=== PATIENT | male | born 1980 | race Caucasian/White ===

== ENCOUNTER 2016-06-06 18:21 | Emergency (ER) | payer SELFPAY ==
[~2016-06-06] VITALS: Ht 172.7 cm; Wt 55.0 kg
[~2016-06-06 18:21] MED LIST: CIPR500T4 PO; ELVI1TAB PO; METR500T PO
[2016-06-06 18:50] VITALS: Ht 172.7 cm; Wt 55.0 kg
== END 2016-06-06 22:51 | disposition left against medical advice (07) ==
LOC: E/R 18:21
DX: Z53.21 Procedure and treatment not carried out due to patient leaving prior to being seen by health care provider (principal)

== ENCOUNTER 2016-09-23 12:19 | Inpatient (IN) | payer BC ==
[~2016-09-23] VITALS: Ht 172.7 cm; Wt 60.6 kg
[2016-09-23] MEDS ORDERED: ONDANSETRON 4 MG INJ IV STA (12:36)
[2016-09-23] MEDS ORDERED: SOD CHLORIDE 0.9% 1,000 ML IV STA (12:36)
[2016-09-23 13:16] LABS: ADD UMIC YES; URINE BILIRUBIN (Dip) NEGATIVE (NEGATIVE); URINE BLOOD (Dip) 2+ (NEGATIVE); URINE COLOR LT. YELLOW (YELLOW); URINE GLUCOSE (Dip) NEGATIVE (NEGATIVE); URINE KETONES (Dip) NEGATIVE (NEGATIVE); URINE LEUKOCYTE ESTERASE (Dip) NEGATIVE (NEGATIVE); URINE NITRITE (Dip) NEGATIVE (NEGATIVE); URINE TOTAL PROTEIN (Dip) 1+ (NEGATIVE); URINE UROBILINOGEN (Dip) 0.2 E.U./dL (0.1-1.0)
[2016-09-23 13:49] LABS: ADD SCAN DIFF NO
[2016-09-23 13:52] LABS: ABNORMAL IP MESSAGE 1; HEMATOCRIT 35.2 % (42.0-52.0); HEMOGLOBIN 12.5 g/dl (14.0-18.0); MEAN CORPUSCULAR HEMOGLOBIN 28.6 pg (29.0-33.0); MEAN CORPUSCULAR HGB CONC 35.5 g/dl (32.0-37.0); MEAN CORPUSCULAR VOLUME 80.5 fl (82.0-101.0); MEAN PLATELET VOLUME 9.4 fl (7.4-10.4); RED BLOOD COUNT 4.37 10^6/ul (4.70-6.10); RED CELL DISTRIBUTION WIDTH 15.4 % (11.5-14.5); WHITE BLOOD COUNT 11.8 10^3/ul (4.8-10.8)
[2016-09-23] MEDS ORDERED: DICLOFENAC SODIUM 37.5 MG/ML VIAL IV STA (14:04)
[2016-09-23 14:10] LABS: ALBUMIN 3.9 g/dl (3.3-4.9); ALBUMIN/GLOBULIN RATIO 0.78; BILIRUBIN,INDIRECT 0.2 mg/dl (0-1.1); BILIRUBIN,TOTAL 0.2 mg/dl (0.2-1.3); CALCIUM 8.5 mg/dl (8.4-10.2); CREATININE 1.82 mg/dl (0.61-1.24); TOTAL PROTEIN 8.9 g/dl (6.1-8.1)
[2016-09-23 14:14] LABS: POTASSIUM 2.3 mmol/L (3.5-5.1)
[2016-09-23] MEDS ORDERED: POTASSIUM CHLORIDE (SR) 20 MEQ TAB PO STA (14:19)
[2016-09-23 14:50] LABS: LYMPHOCYTES # 2.8 10^3/ul (0.8-2.9); MONOCYTE # 1.7 10^3/ul (0.3-0.9); NEUTROPHIL # 6.5 10^3/ul (1.6-7.5); PLATELET ESTIMATE PLT APPEAR INCREASED
[2016-09-23] MEDS ORDERED: POTASSIUM CHLORIDE 250 ML IVPB ONE (15:00)
[2016-09-23 16:00] VITALS: TEMP 98
[2016-09-23] MEDS ORDERED: SOD CHLORIDE 0.9% 500 ML IV STA (16:22)
[2016-09-23] MEDS ORDERED: ONDANSETRON 4 MG INJ IV PRN ×2 (16:30→18:30)
[2016-09-23] MEDS ORDERED: LORAZEPAM 2 MG INJ IV ONE (16:30)
[2016-09-23] MEDS ORDERED: ACETAMINOPHEN 325 MG TAB PO PRN ×2 (16:30→18:30)
--- NOTE | 2016-09-23 17:30 | ERD ---
ER Documentation Chief Complaint Date/Time DATE: 09/23/16 TIME: 17:28 Chief Complaint complains of diarrhea and vomiting x 3 days HPI Patient is a 35-year-old male with HIV who presents with diarrhea. The patient has had diarrhea for the past 2 weeks. He has had vomiting off and on as well as fevers off and on. He said that he stopped taking his HIV medications 4 days ago because of the vomiting and he could not keep them down. He has diffuse abdominal pain. He does not know the name of his primary doctor. ROS All systems reviewed and are negative except as per history of present illness. Medications Home Meds Active Scripts Metronidazole* (Flagyl*) 500 Mg Tablet, 500 MG PO TID for 10 Days, TAB Prov:SAMM MEZA MD 02/11/15 Ciprofloxacin Hcl* (Ciprofloxacin Hcl*) 500 Mg Tablet, 500 MG PO BID for 10 Days , TAB Prov:SAMM MEZA MD 02/11/15 Reported Medications Elvitegr/Cobicist/Emtric/Tenof (STRIBILD TABLET) 1 Each Tablet, 1 EACH PO DAILY 02/11/15 Allergies Allergies: Coded Allergies: No Known Drug Allergy (Verified Allergy, Unknown, 05/09/08) Morphine (Verified Adverse Reaction, Severe, ANXIETY,SOB, 05/07/08) PMhx/Soc Hx Neurological Disorder: Yes (meningitis 4 years ago, stroke 3.5 years ago) Hx Miscellaneous Medical Probl: Yes (HIV, previous dehydration) Hx Alcohol Use: Yes (quit 5 years ago) Hx Substance Use: Yes (quit 3 months ago) Hx Tobacco Use: Yes Smoking Status: Current some day smoker FmHx Family History: diabetes Physical Exam Vitals Vital Signs Date Time Temp Pulse Resp B/P Pulse Ox O2 Delivery O2 Flow Rate FiO2 09/23/16 16:00 98.0 86 18 114/68 100 Room Air 09/23/16 12:22 97.8 114 20 103/62 100 Physical Exam Const: Cachexia Head: Atraumatic Eyes: Normal Conjunctiva ENT: Normal External Ears, Nose and Mouth. Neck: Full range of motion..~ No meningismus. Resp: Clear to auscultation bilaterally Cardio: Regular rate and rhythm, no murmurs Abd: Soft, non tender, non distended. Normal bowel sounds Skin: No petechiae or rashes Back: No midline or flank tenderness Ext: No cyanosis, or edema Neur: Awake and alert Psych: Normal Mood and Affect Result Diagram: 09/23/16 1330 09/23/16 1330 Results 24 hrs Laboratory Tests Test 09/23/16 12:54 09/23/16 13:30 Urine Color LT. YELLOW Urine Clarity CLEAR Urine pH 6.0 Urine Specific [place] <=1.005 Urine Ketones NEGATIVE Urine Nitrite NEGATIVE Urine Bilirubin NEGATIVE Urine Urobilinogen 0.2 E.U./dL Urine Leukocyte Esterase NEGATIVE Urine Microscopic RBC 5-10/HPF Urine Microscopic WBC 2-5/HPF Urine Hemoglobin 2+ Urine Glucose NEGATIVE% Urine Total Protein 1+ White Blood Count 11.810^3/ul Red Blood Count 4.3710^6/ul Hemoglobin 12.5g/dl Hematocrit 35.2% Mean Corpuscular Volume 80.5fl Mean Corpuscular Hemoglobin 28.6pg Mean Corpuscular Hemoglobin Concent 35.5g/dl Red Cell Distribution Width 15.4% Platelet Count 07837^3/UL Mean Platelet Volume 9.4fl Neutrophils % 55.0% Band Neutrophils % 7.0% Lymphocytes % 24.0% Monocytes % 14.0% Eosinophils % % Neutrophils # 6.510^3/ul Lymphocytes # 2.810^3/ul Monocytes # 1.710^3/ul Eosinophils # 10^3/ul Platelet Estimate PLT APPEAR INCREASED Clumped Platelets Sodium Level 128mmol/L Potassium Level 2.3mmol/L Chloride Level 98mmol/L Carbon Dioxide Level 16mmol/L Anion Gap 16 Blood Urea Nitrogen 18mg/dl Creatinine 1.82mg/dl Glucose Level 101mg/dl Calcium Level 8.5mg/dl Total Bilirubin 0.2mg/dl Direct Bilirubin 0.00mg/dl Indirect Bilirubin 0.2mg/dl Aspartate Amino Transf (AST/SGOT) 54IU/L Alanine Aminotransferase (ALT/SGPT) 84IU/L Alkaline Phosphatase 156IU/L Total Protein 8.9g/dl Albumin 3.9g/dl Globulin 5.00g/dl Albumin/Globulin Ratio 0.78 Lipase 165U/L Current Medications Medications (Trade) Dose Ordered Sig/Nicko Route PRN Reason Start Time Stop Time Status Last Admin Dose Admin Sodium Chloride (NS) 1,000 ml @ 1,000 mls/hr Q1H STAT IV 09/23/16 12:36 09/23/16 13:35 DC 09/23/16 13:32 Ondansetron HCl (Zofran Inj) 4 mg ONCE STAT IV 09/23/16 12:36 09/23/16 12:39 DC 09/23/16 13:32 Diclofenac Sodium (Dyloject) 37.5 mg ONCE STAT IV 09/23/16 14:04 09/23/16 14:07 DC 09/23/16 14:12 Potassium Chloride 40 meq 40 meq ONCE STAT PO 09/23/16 14:19 09/23/16 14:21 DC 09/23/16 14:32 Potassium Chloride (KCl 40 MEQ/250 ML NS) 250 ml @ 62.5 mls/hr ONCE ONCE IVPB 09/23/16 15:00 09/23/16 18:59 09/23/16 16:02 Ondansetron HCl (Zofran Inj) 4 mg ER BRIDGE PRN IV NAUSEA AND/OR VOMITING 09/23/16 16:30 09/24/16 16:29 Acetaminophen (Tylenol Tab) 650 mg ER BRIDGE PRN PO MILD PAIN/FEVER 09/23/16 16:30 09/24/16 16:29 Lorazepam 0.5 mg 0.5 mg ONCE ONCE IV 09/23/16 16:30 09/23/16 16:31 DC 09/23/16 16:25 Sodium Chloride (NS) 500 ml @ 500 mls/hr Q1H STAT IV 09/23/16 16:22 09/23/16 17:21 DC 09/23/16 16:25 Procedures/MDM EKG read by me: Rate/Rhythm: Regular rate and rhythm at a normal rate Intervals: Normal Impression: No evidence of ischemia or arrhythmia Patient is a 35-year-old male with HIV who presents with vomiting and diarrhea. He had significant diarrhea to cause his potassium to become 2.3 and he has significant hypokalemia. The patient has anemia with a hemoglobin of 12.5 but does not require transfusion. He has mild acute renal failure with a creatinine of 1.82 which is likely from fluid loss. The patient will be given IV normal saline. The patient was given potassium by mouth and IV. He will be admitted to the care of the panel team as the IPA has authorized admission. He will be admitted to a telemetry bed. Observation Note: Time: 4 hours Family Hx: Positive for diabetes Evaluation: Multiple exams showed improving symptoms and no evidence of clinical decompensation. Departure Diagnosis: Primary Impression: HIV (human immunodeficiency virus infection) Additional Impressions: Diarrhea Diarrhea type: unspecified type Qualified Code: R19.7 - Diarrhea, unspecified type Hypokalemia Condition: ANA Hodges MD Sep 23, 2016 17:30
[2016-09-23 17:57] VITALS: Ht 172.7 cm; Wt 60.6 kg
[2016-09-23 17:59] VITALS: BP 103/59; PULSE 84; RESP 18
[2016-09-23] MEDS ORDERED: HYDROCODONE/APAP (5/325) TAB PO PRN (18:30)
[2016-09-23] MEDS ORDERED: NACL 0.9% 3 ML SYG IV SCH (18:30)
[2016-09-23] MEDS: HYDROmorphONE 1 MG/ML SYG IV PRN (18:51)
--- NOTE | 2016-09-23 18:59 | HP ---
DATE OF ADMISSION: 09/23/2016 CHIEF COMPLAINT: Diarrhea. HISTORY OF PRESENT ILLNESS: The patient is a 35-year-old male with a history of HIV who has john hernandes compliance with his HIV medications. He states that he has not been taking his medications fo r the past week. He has a history of meningitis in the past x2. He states that his last CD4 was ch ecked several months ago and was in the 200s. The patient presents with 1 week of diarrhea. He als o endorses abdominal pain. He has no other complaints. PAST MEDICAL HISTORY: HIV with several episodes of meningitis. PAST SURGICAL HISTORY: Denies. HOME MEDICATIONS: 1. Stribild. 2. Cipro 3. Flagyl. ALLERGIES: REPORTEDLY MORPHINE, BUT HE HAS AN ADVERSE REACTION OF ANXIETY AND NOT A TRUE ALLERGY. FAMILY HISTORY: Denies. SOCIAL HISTORY: Denies any current alcohol, tobacco, or drug abuse, but he has a history of smoking , drug abuse as well as alcohol abuse. REVIEW OF SYSTEMS: A 12-point review of systems is negative except as discussed in the HPI. PHYSICAL EXAMINATION: VITAL SIGNS: Temperature is 98.1, pulse 84, respiratory rate 18, blood pressure is 103/59, saturati on is 100% on room air. GENERAL: No acute distress, alert and oriented. HEENT: Normocephalic, atraumatic. CHEST: Clear to auscultation. CARDIOVASCULAR: Regular rate and rhythm. ABDOMEN: Nondistended, nontender, soft. EXTREMITIES: No clubbing, cyanosis, or edema. LABORATORY DATA: White count 11.8, hemoglobin 12.5, platelets of 621. Chemistry: Sodium is 128, p otassium is 2.3, chloride is 98, carbon dioxide is 16, creatinine is 1.82. AST is 54, ALT is 84, al kaline phosphatase 156. UA within normal limits. ASSESSMENT AND PLAN: 1. Human immunodeficiency virus with diarrhea for 1 week. Stool cultures already have been obtaine d in the ED. We will get an ID consultation. We will restart the patient's home HIV medications. 2. Leukocytosis, likely secondary to diarrhea. 3. Microcytic anemia. We will check an iron panel. 4. Hypokalemia. We will replete with potassium IV. 5. Hyponatremia. We will treat with normal saline. 6. Transaminitis, possibly secondary to HIV medications. We will check a hepatitis panel. 7. Prophylaxis. Ambulation. Dictated By: MILLER MCKEON/LIZA Conf#: [id number] DID#: [id number]
[2016-09-23 20:09] VITALS: PULSE 92
[2016-09-23] MEDS: NS + KCL 20 MEQ 1,000 ML IV SCH (20:30)
[2016-09-23 20:58] VITALS: BP 94/53; RESP 16
[2016-09-23] MEDS: metroNIDAZOLE 500 MG/NS (PMX) 100 ML IVPB SCH (22:44)
[2016-09-24] VITALS (11 sets, daily range): BP systolic 88–122; BP diastolic 52–65; PULSE 101–121; RESP 16–20
[2016-09-24] MEDS: metroNIDAZOLE 500 MG/NS (PMX) 100 ML IVPB SCH ×3 (06:12→22:40)
[2016-09-24] MEDS: NS + KCL 20 MEQ 1,000 ML IV SCH ×3 (06:12→22:45)
[2016-09-24] MEDS: ELVITEGR/COBICIST/EMTRIC/TENOF 1 EACH TABLET PO SCH (09:35)
[2016-09-24] MEDS: HYDROmorphONE 1 MG/ML SYG IV PRN ×5 (10:13→23:14)
[2016-09-24 10:40] LABS: ADD SCAN DIFF NO; HAAIG REFLEX REFLEX FILED
[2016-09-24 10:43] LABS: ABNORMAL IP MESSAGE 1; HEMATOCRIT 27.1 % (42.0-52.0); HEMOGLOBIN 9.3 g/dl (14.0-18.0); MEAN CORPUSCULAR HEMOGLOBIN 28.4 pg (29.0-33.0); MEAN CORPUSCULAR HGB CONC 34.3 g/dl (32.0-37.0); MEAN CORPUSCULAR VOLUME 82.6 fl (82.0-101.0); MEAN PLATELET VOLUME 10.5 fl (7.4-10.4); PLATELET COUNT 379 10^3/UL (140-415); RED BLOOD COUNT 3.28 10^6/ul (4.70-6.10); RED CELL DISTRIBUTION WIDTH 15.9 % (11.5-14.5); WHITE BLOOD COUNT 12.3 10^3/ul (4.8-10.8)
[2016-09-24 11:07] LABS: IRON 35 ug/dl (35-150)
[2016-09-24 11:10] LABS: ALBUMIN/GLOBULIN RATIO 0.75; ANION GAP 8 (8-16)
[2016-09-24 11:16] LABS: TOTAL IRON BINDING CAPACITY 162 ug/dl (241-421)
[2016-09-24 11:21] LABS: SODIUM 131 mmol/L (135-144)
[2016-09-24 11:23] LABS: ALANINE AMINOTRANSFERASE 55 IU/L (13-69); ALBUMIN 2.8 g/dl (3.3-4.9); ALKALINE PHOSPHATASE 115 IU/L (42-121); ASPARTATE AMINO TRANSFERASE 29 IU/L (15-46); BILIRUBIN,INDIRECT 0.1 mg/dl (0-1.1); BILIRUBIN,TOTAL 0.1 mg/dl (0.2-1.3); BLOOD UREA NITROGEN 17 mg/dl (7-20); CALCIUM 7.7 mg/dl (8.4-10.2); CARBON DIOXIDE 12 mmol/L (21-31); CHLORIDE 113 mmol/L (97-110); CREATININE 1.49 mg/dl (0.61-1.24); GLUCOSE 91 mg/dl (70-220); MAGNESIUM 2.1 mg/dl (1.7-2.5); PHOSPHORUS 1.3 mg/dl (2.5-4.9); POTASSIUM 2.4 mmol/L (3.5-5.1); TOTAL PROTEIN 6.5 g/dl (6.1-8.1)
[2016-09-24 11:49] LABS: LYMPHOCYTES # 1.4 10^3/ul (0.8-2.9); MONOCYTE # 0.6 10^3/ul (0.3-0.9); NEUTROPHIL # 9.5 10^3/ul (1.6-7.5)
[2016-09-24 12:53] LABS: HEPATITIS B CORE ANTIBODY NEGATIVE (NEGATIVE)
--- NOTE | 2016-09-24 14:40 | PN ---
DATE: 09/24/2016 SUBJECTIVE: No acute changes. The patient is awake, very weak, complaining of diarrhea and is comp laining of feeling weak and also depressed. He is afebrile. He states he had a bowel movements 10 times this morning. WBC today 12.3 with H and H 9.3 and 27.1, platelets 379, neutrophils 77, bands 7, lymphs 11, monos 5. BUN 17, creatinine 1.49. Sodium 131, potassium 2.4. LFTs within normal littlejohn its. Urinalysis was negative for leukocyte esterase and nitrite. Hepatitis serology pending. MICROBIOLOGY: Urine culture preliminary negative. Stool for C. diff negative. ANTIMICROBIALS: The patient is on: 1. Flagyl. 2. He is also getting Stribild for his HIV. PHYSICAL EXAMINATION: GENERAL: This is well-developed, cachectic, middle-aged man who is alert, in no distress. HEENT: Head atraumatic, normocephalic. Sclerae anicteric. Buccal mucosa pink. NECK: Supple. CHEST: Rise symmetrical. Breath sounds clear. HEART: S1, S2. ABDOMEN: Soft, bowel tones present. EXTREMITIES: Without cyanosis or edema. ASSESSMENT: 1. Acquired immunodeficiency syndrome. As per report, patient is supposed to be on prophylactic B actrim, which he stopped taking because he was not feeling well and had been nauseated, remains on S tribild. 2. Diarrhea, so far Clostridium difficile was negative, on Flagyl. Rule out opportunistic such as cryptosporidium Isospora. Rule out food poisoning versus parasitic infection. 3. Cachexia. 4. History of meningitis and recent pneumonia. 5. History of tobacco abuse. 6. Acute renal failure. PLAN: We are going to start him on Cipro. Continue Flagyl. Replete potassium. Continue IV fluids, send stool for ova and parasites, cryptosporidium Isospora. We will also start him on empiric Valc yte for possible CMV colitis as the patient states he has AIDS and at risk for it. If diarrhea pers ists, recommend gastroenterology evaluation for possible colonoscopy. We will also order CD4 count if it has not been done. Dictated By: ELADIO HERNANDEZ NAIL ASSEMBLY MACHINE OPERATOR for [employer]/LIZA Conf#: [id number] DID#: [id number]
[2016-09-24] MEDS ORDERED: LORAZEPAM 1 MG TAB PO PRN (15:30)
[2016-09-24] MEDS: LEVOFLOXACIN 500MG/D5W (PMX) 100 ML IVPB SCH (16:04)
--- NOTE | 2016-09-24 18:04 | PN ---
Date/Time of Note Date/Time of Note DATE: 09/24/16 TIME: 17:59 Assessment/Plan VTE Prophylaxis VTE Prophylaxis Intervention: ambulation Lines/Catheters IV [facility] (from [facility]): Peripheral IV Urinary Cath still in place: No Assessment/Plan Chief Complaint/Hosp Course 1. Diarrhea in a patient with HIV Prelim stool cultures are negative, C. difficile is negative ID consult appreciated, follow-up on further workup Continue patient's home HIV medications follow-up on the CD4 level Continue Flagyl Levaquin and Valcyte .2. Leukocytosis secondary to above 3. Microcytic anemia secondary to anemia of chronic disease 4. Hypokalemia-complete 5. Hyponatremia Continue normal saline 6. Transaminitis-resolved Hep panel negative Prophylaxis- Ambulation Problems: Subjective 24 Hr Interval Summary Gastrointestinal: pain Psychological: anxiety Exam/Review of Systems Vital Signs Vitals Vital Signs Date Time Temp Pulse Resp B/P Pulse Ox O2 Delivery O2 Flow Rate FiO2 09/24/16 16:05 121 09/24/16 16:05 98.2 18 122/62 99 09/23/16 17:59 Room Air Intake and Output 09/23/16 09/23/16 09/24/16 15:00 23:00 07:00 Intake Total 1100 ml Balance 1100 ml Exam Constitutional: alert, oriented Respiratory: clear to auscultation Cardiovascular: regular rate and rhythm Gastrointestinal: soft, No distended Musculoskeletal: nl extremities to inspection Results Result Diagram: 09/24/16 0955 09/24/16 0955 Results 24 hrs Laboratory Tests Test 09/24/16 09:55 White Blood Count 12.3 H Red Blood Count 3.28 #L Hemoglobin 9.3 #L Hematocrit 27.1 #L Mean Corpuscular Volume 82.6 Mean Corpuscular Hemoglobin 28.4 L Mean Corpuscular Hemoglobin Concent 34.3 Red Cell Distribution Width 15.9 H Platelet Count 379 # Mean Platelet Volume 10.5 H Neutrophils % 77.0 Band Neutrophils % 7.0 H Lymphocytes % 11.0 L Monocytes % 5.0 Eosinophils % Neutrophils # 9.5 H Lymphocytes # 1.4 Monocytes # 0.6 Eosinophils # Sodium Level 131 L Potassium Level 2.4 *L Chloride Level 113 H Carbon Dioxide Level 12 L Anion Gap 8 # Blood Urea Nitrogen 17 Creatinine 1.49 H Glucose Level 91 Hemoglobin A1c 5.9 Calcium Level 7.7 L Phosphorus Level 1.3 L Magnesium Level 2.1 Iron Level 35 Total Iron Binding Capacity 162 L Percent Iron Saturation 22 Total Bilirubin 0.1 L Direct Bilirubin 0.00 Indirect Bilirubin 0.1 Aspartate Amino Transf (AST/SGOT) 29 Alanine Aminotransferase (ALT/SGPT) 55 Alkaline Phosphatase 115 Total Protein 6.5 # Albumin 2.8 #L Globulin 3.70 H Albumin/Globulin Ratio 0.75 Hepatitis B Surface Antigen NEGATIVE Hepatitis B Core Total Antibody NEGATIVE Hepatitis C Antibody NEGATIVE Medications Medications Current Medications Ondansetron HCl (Zofran Inj) 4 mg Q6H PRN IV NAUSEA AND/OR VOMITING; Start 09/23 at 18:30 Acetaminophen (Tylenol Tab) 650 mg Q6H PRN PO PAIN LEVEL 1-3 OR FEVER; Start at 18:30 Acetaminophen/ Hydrocodone Bitart ([place] (5/325)) 1 tab Q6H PRN PO MODERATE PAIN LEVEL 4-6 Last administered on 09/24/16 09:36; Admin Dose 1 TAB; Start 09/23/16 at 18:30 Hydromorphone HCl (Dilaudid) 0.5 mg Q4H PRN IV SEVERE PAIN LEVEL 7-10 Last administered on 09/24/16 14:56; Admin Dose 0.5 MG; Start 09/23/16 at 18:30 Elvitegravir/ Cobicis/Emtricit/ Tenof 1 each 1 each DAILY PO Last administered on 09/24/16 09:35; Admin Dose 1 EACH; Start 09/24/16 at 09:00 Potassium Chloride/Sodium Chloride 1,000 ml @ 100 mls/hr Q10H IV Last administered on 09/24/16 14:55; Admin Dose 100 MLS/HR; Start 09/23/16 at 18:30 Metronidazole (Flagyl 500 Mg (Pmx)) 100 ml @ 100 mls/hr Q8 IVPB Last administered on 09/24/16 14:55; Admin Dose 100 MLS/HR; Start 09/23/16 at 22:00 Valganciclovir 450 mg 450 mg BID PO ; Start 09/24/16 at 21:00 Levofloxacin/ Dextrose (Levaquin 500mg/ D5W 100 ml (Pmx)) 100 ml @ 100 mls/hr Q24H IVPB Last administered on 09/24/16 16:04; Admin Dose 100 MLS/HR; Start at 14:30 Lorazepam (Ativan) 1 mg Q6H PRN PO ANXIETY Last administered on 09/24/16 16:04 ; Admin Dose 1 MG; Start 09/24/16 at 15:30 MILLER CUTLER Sep 24, 2016 18:04
[2016-09-24] MEDS ORDERED: POTASSIUM CHLORIDE 250 ML IVPB SCH (18:30)
[2016-09-24] MEDS ORDERED: POTASSIUM PHOSPHATE 40 MEQ in SOD CHLORIDE 0.9% 250 ML IVPB ONE (19:30)
[2016-09-24] MEDS ORDERED: POTASSIUM CHLORIDE 250 ML IVPB ONE (19:30)
[2016-09-24] MEDS: VALGANCICLOVIR 450 MG TAB PO SCH (22:40)
[2016-09-25 00:49] VITALS: BP 125/69; PULSE 101; RESP 20
--- NOTE | 2016-09-25 03:45 | CONS ---
DATE OF ADMISSION: 09/23/2016 DATE OF CONSULTATION: 09/23/2016 INFECTIOUS DISEASE CONSULTATION PHYSICIAN REQUEST CONSULTATION: I am seeing this patient for Dr. Codey Keyes at the request of Max Escalona. HISTORY OF PRESENT ILLNESS: The patient is a 35-year-old male who has acquired immune defic iency syndrome with a T-cell below 200 presents with a 2-week history of diarrhea. This is associat ed with vomiting and subjective fevers off and on. When he presented with the diffuse abdominal rico n, his white blood cell count on admission to the ER was 11,800, hemoglobin 12.5 grams with 55 polys , 7 bands, 24 lymphocytes. Sodium 128, potassium 2.3, creatinine 1.8, BUN 18. PAST MEDICAL HISTORY: The patient has a past medical history of acquired immune deficiency syndrome . He is taking Stribild for this and Bactrim-DS daily. He has not been able to take it prior to ad mission because he had a lot of nausea and vomiting and upset his stomach more. Further past medical history of cerebrovascular accident 3-1/2 years ago and meningitis 4 years ago. ALLERGIES: HE HAS NO KNOWN ALLERGIES. MEDICATIONS: Consist of Stribild and Bactrim-DS. PHYSICAL EXAMINATION: GENERAL: Reveals a chronically ill-appearing male who does not appear to be in acute distr ess at this time. VITAL SIGNS: Temperature 98.1, pulse 84, respirations 18, blood pressure 103/59, pulse oximetry 100 % on room air. HEENT: The pupils are equal, round, and react to light. Extraocular movements are full. The mouth has thickened secretions on the tongue and mucous membranes. NECK: Supple. CHEST: Clear to auscultation. HEART: Regular without gallop, murmur or rub. The bowel sounds are active. EXTREMITIES: No edema, cyanosis or clubbing. Distal pedal pulses are intact. INITIAL IMPRESSION: 1. Diarrhea, rule out Clostridium difficile, rule out strongyloides, rule out enteric pathogens, ru le out cryptosporidium, doubt CMV because his T-cells are not below 100. 2. Hypokalemia. 3. Hyponatremic dehydration. 4. Tobacco use. RECOMMENDATIONS: Continue Flagyl and fluoroquinolone treatment with Valcyte 450 mg twice a day. Re plete the patient's potassium and rehydrate him. Recommend before discharge meningitis vaccine. Dictated By: Doreen MARCOS/LIZA Conf#: [id number] DID#: [id number]
[2016-09-25 04:08] VITALS: PULSE 98
[2016-09-25] MEDS: metroNIDAZOLE 500 MG/NS (PMX) 100 ML IVPB SCH ×2 (05:41→14:00)
[2016-09-25 07:39] VITALS: BP 92/54; RESP 20
[2016-09-25 08:03] VITALS: PULSE 94
[2016-09-25] MEDS: NS + KCL 20 MEQ 1,000 ML IV SCH (08:45)
[2016-09-25] MEDS: HYDROmorphONE 1 MG/ML SYG IV PRN (08:54)
[2016-09-25] MEDS: VALGANCICLOVIR 450 MG TAB PO SCH (08:54)
[2016-09-25] MEDS: ELVITEGR/COBICIST/EMTRIC/TENOF 1 EACH TABLET PO SCH (09:00)
[2016-09-25 10:25] LABS: ADD SCAN DIFF NO
[2016-09-25 10:50] LABS: CALCIUM 7.6 mg/dl (8.4-10.2); CREATININE 1.57 mg/dl (0.61-1.24); MAGNESIUM 1.9 mg/dl (1.7-2.5); PHOSPHORUS 2.8 mg/dl (2.5-4.9)
[2016-09-25 10:55] LABS: ABNORMAL IP MESSAGE 1; BASOPHILS % 0.1 % (0.0-2.0); EOSINOPHILS % 0.2 % (0.0-7.0); HEMATOCRIT 28.5 % (42.0-52.0); LYMPHOCYTES # 1.5 10^3/ul (0.8-2.9); LYMPHOCYTES % 11.9 % (15.0-51.0); MEAN CORPUSCULAR HEMOGLOBIN 28.8 pg (29.0-33.0); MEAN CORPUSCULAR HGB CONC 35.1 g/dl (32.0-37.0); MEAN CORPUSCULAR VOLUME 82.1 fl (82.0-101.0); MEAN PLATELET VOLUME 9.9 fl (7.4-10.4); MONOCYTE # 1.3 10^3/ul (0.3-0.9); MONOCYTES % 10.4 % (0.0-11.0); NEUTROPHIL # 8.2 10^3/ul (1.6-7.5); NEUTROPHILS % 66.6 % (39.0-77.0); PLATELET COUNT 551 10^3/UL (140-415); RED BLOOD COUNT 3.47 10^6/ul (4.70-6.10); RED CELL DISTRIBUTION WIDTH 16.1 % (11.5-14.5); WHITE BLOOD COUNT 12.3 10^3/ul (4.8-10.8)
--- NOTE | 2016-09-25 11:07 | PN ---
Date/Time of Note Date/Time of Note DATE: 09/25/16 TIME: 11:03 Assessment/Plan VTE Prophylaxis VTE Prophylaxis Intervention: ambulation Lines/Catheters IV [facility] Type ([facility] Peripheral IV Urinary Cath still in place: No Assessment/Plan Chief Complaint/Hosp Course 1. Diarrhea in a patient with HIV-frequency of loose stools has decreased but still present Prelim stool cultures are negative, C. difficile is negative ID consult appreciated, follow-up on further workup Continue patient's home HIV medications follow-up on the CD4 level, patient advised on the importance of medication compliance Continue Flagyl Levaquin and Valcyte Continue IV fluids 2. Leukocytosis secondary to above 3. Microcytic anemia secondary to anemia of chronic disease 4. Hypokalemia-replete 5. Hyponatremia Continue normal saline 6. Transaminitis-resolved Hep panel negative Prophylaxis- Ambulation Discharge planning: Anticipate DC home in 1-2 days, diarrhea still present at this time and infectious workup is still in progress Problems: Subjective 24 Hr Interval Summary Constitutional: no complaints Exam/Review of Systems Vital Signs Vitals Vital Signs Date Time Temp Pulse Resp B/P Pulse Ox O2 Delivery O2 Flow Rate FiO2 09/25/16 08:03 94 09/25/16 07:39 97.6 20 92/54 99 09/23/16 17:59 Room Air Intake and Output 09/24/16 09/24/16 09/25/16 15:00 23:00 07:00 Intake Total 3200 ml 2069.0909 ml Balance 3200 ml 2069.0909 ml Exam Constitutional: alert, oriented Respiratory: clear to auscultation Cardiovascular: regular rate and rhythm Gastrointestinal: soft, No distended Musculoskeletal: nl extremities to inspection Results Result Diagram: 09/24/1695409/24/16954 Medications Medications Current Medications Ondansetron HCl (Zofran Inj) 4 mg Q6H PRN IV NAUSEA AND/OR VOMITING; Start 09/23 at 18:30 Acetaminophen (Tylenol Tab) 650 mg Q6H PRN PO PAIN LEVEL 1-3 OR FEVER; Start at 18:30 Acetaminophen/ Hydrocodone Bitart ([place] (5/325)) 1 tab Q6H PRN PO MODERATE PAIN LEVEL 4-6 Last administered on 09/24/16t 09:36; Admin Dose 1 TAB; Start 09/23/16 at 18:30 Hydromorphone HCl (Dilaudid) 0.5 mg Q4H PRN IV SEVERE PAIN LEVEL 7-10 Last administered on 09/25/16 08:54; Admin Dose 0.5 MG; Start 09/23/16 at 18:30 Elvitegravir/ Cobicis/Emtricit/ Tenof 1 each 1 each DAILY PO Last administered on 09/24/16 09:35; Admin Dose 1 EACH; Start 09/24/16 at 09:00 Potassium Chloride/Sodium Chloride 1,000 ml @ 100 mls/hr Q10H IV Last administered on 09/25/16 08:45; Admin Dose 100 MLS/HR; Start 09/23/16 at 18:30 Metronidazole (Flagyl 500 Mg (Pmx)) 100 ml @ 100 mls/hr Q8 IVPB Last administered on 09/25/16 05:41; Admin Dose 100 MLS/HR; Start 09/23/16 at 22:00 Valganciclovir 450 mg 450 mg BID PO Last administered on 09/25/16 08:54; Admin Dose 450 MG; Start 09/24/16 at 21:00 Levofloxacin/ Dextrose (Levaquin 500mg/ D5W 100 ml (Pmx)) 100 ml @ 100 mls/hr Q24H IVPB Last administered on 09/24/16 16:04; Admin Dose 100 MLS/HR; Start at 14:30 Lorazepam (Ativan) 1 mg Q6H PRN PO ANXIETY Last administered on 09/24/16 16:04 ; Admin Dose 1 MG; Start 09/24/16 at 15:30 MILLER CUTLER Sep 25, 2016 11:07
[2016-09-25 11:19] LABS: POTASSIUM 2.5 mmol/L (3.5-5.1)
[2016-09-25 11:27] VITALS: BP 109/60; RESP 20
[2016-09-25 12:06] VITALS: PULSE 97
[2016-09-25 13:23] LABS: LYMPHOCYTE - % CD4 (HELPER) 1 % (30-61); LYMPHOCYTE - %CD8 (SUPPRESSOR) 55 % (12-42); LYMPHOCYTE - ABSOLUTE CD4 <20 cells/uL (490-1740); LYMPHOCYTE - ABSOLUTE CD8 504 cells/uL (180-1170); LYMPHOCYTE - CD4/CD8 RATIO 0.03 (0.86-5.00)
[2016-09-25] MEDS: LEVOFLOXACIN 500MG/D5W (PMX) 100 ML IVPB SCH (14:30)
[2016-09-25] MEDS: POTASSIUM CHLORIDE 250 ML IVPB SCH ×2 (14:38→15:25)
[2016-09-25] MEDS ORDERED: POTASSIUM CHLORIDE (SR) 20 MEQ TAB PO STA (14:47)
--- NOTE | 2016-09-25 19:49 | CONS ---
Date/Time of Note Date/Time of Note DATE: 09/25/16 TIME: 19:47 Assessment/Plan Assessment/Plan Chief Complaint/Hosp Course SUBJECTIVE: No acute changes. The patient is awake, no fevers, diarrhea persists. Wants to go home today MICROBIOLOGY: Urine culture preliminary negative. Stool for C. diff negative. ANTIMICROBIALS: The patient is on: 1. Flagyl. 2. Stribild for HIV. 3. Levaquin PHYSICAL EXAMINATION: GENERAL: This is well-developed, cachectic, middle-aged man who is alert, in no distress. HEENT: Head atraumatic, normocephalic. Sclerae anicteric. Buccal mucosa pink. NECK: Supple. CHEST: Rise symmetrical. Breath sounds clear. HEART: S1, S2. ABDOMEN: Soft, bowel tones present. EXTREMITIES: Without cyanosis or edema. ASSESSMENT: 1. Acquired immunodeficiency syndrome. As per report, patient is supposed to be on prophylactic Bactrim, which he stopped taking because he was not feeling well and had been nauseated, remains on Stribild. 2. Diarrhea, so far Clostridium difficile was negative, on Flagyl. Rule out opportunistic such as cryptosporidium and Isospora. Rule out CMV colitis versus parasitic infection. 3. Cachexia. 4. History of meningitis and recent pneumonia. 5. History of tobacco abuse. 6. Acute renal failure. PLAN: Clinically unchanged, continue abx, IV hydration, f/u final work up and CD4 count, may need GI eval if no improvement [facility] staff Problems: Consultation Date/Type/Reason Admit Date/Time Sep 23, 2016 at 16:12 Initial Consult Date Type of Consultation: ID Exam/Review of Systems Vital Signs Vitals Vital Signs Date Time Temp Pulse Resp B/P Pulse Ox O2 Delivery O2 Flow Rate FiO2 09/25/16 12:06 97 09/25/16 11:27 98.0 20 109/60 100 09/23/16 17:59 Room Air Intake and Output 09/24/16 09/24/16 09/25/16 15:00 23:00 07:00 Intake Total 3200 ml 2069.0909 ml Balance 3200 ml 2069.0909 ml Results Result Diagram: 09/25/16 1000 09/25/16 1000 Results 24 hrs Laboratory Tests Test 09/25/16 10:00 White Blood Count 12.3 H Red Blood Count 3.47 L Hemoglobin 10.0 L Hematocrit 28.5 L Mean Corpuscular Volume 82.1 Mean Corpuscular Hemoglobin 28.8 L Mean Corpuscular Hemoglobin Concent 35.1 Red Cell Distribution Width 16.1 H Platelet Count 551 #H Mean Platelet Volume 9.9 Neutrophils % 66.6 Lymphocytes % 11.9 L Monocytes % 10.4 Eosinophils % 0.2 Basophils % 0.1 Nucleated Red Blood Cells % 0.0 Neutrophils # 8.2 H Lymphocytes # 1.5 Monocytes # 1.3 H Eosinophils # 0.0 Basophils # 0.0 Nucleated Red Blood Cells # 0.0 Sodium Level 133 L Potassium Level 2.5 *L Chloride Level 111 H Carbon Dioxide Level 11 L Anion Gap 14 Blood Urea Nitrogen 15 Creatinine 1.57 H Glucose Level 89 Calcium Level 7.6 L Phosphorus Level 2.8 Magnesium Level 1.9 ELADIO HERNANDEZ NP Sep 25, 2016 19:49
[2016-09-27 06:39] LABS: PLATELET COUNT 621 10^3/UL (140-415)
== END 2016-09-25 15:20 | disposition left against medical advice (07) | DRG 977 ==
LOC: FTE 12:19 → MS4 16:12
PROVIDERS: ADMIT Internal Medicine; ATTEND Internal Medicine
DX: B20 Human immunodeficiency virus [HIV] disease (principal); N19 Unspecified kidney failure; R64 Cachexia; E87.1 Hypo-osmolality and hyponatremia; R19.7 Diarrhea, unspecified; E87.6 Hypokalemia; D72.829 Elevated white blood cell count, unspecified; D64.9 Anemia, unspecified; F17.200 Nicotine dependence, unspecified, uncomplicated; Z68.20 Body mass index [BMI] 20.0-20.9, adult
CPT/HCPCS: 36415; 80048; 80053; 81001; 83036; 83540; 83690; 83735; 84100; 85025; 86360; 86704; 86709; 86803; 87040; 87045; 87075; 87086; 87177; 87205; 87340; 93005; 96374; 96375; J1170; J1956; J2060; J2405; J3480; J7030; J7040; J7050

== ENCOUNTER 2017-02-23 09:29 | Emergency (ER) | payer BC ==
[~2017-02-23] VITALS: Wt 75.0 kg
[2017-02-23] MEDS: ACET/BUTAL/CAFF TAB PO ONE ×2 (10:45→10:56)
[2017-02-23] MEDS ORDERED: FIORICET PO (11:05)
--- NOTE | 2017-02-23 11:15 | ERD ---
ER Documentation Chief Complaint Chief Complaint [place], n/v HPI Patient is a 36-year-old male with past medical history of HIV, unknown CD4 count, who presents to the ED for concerns of a headache. Patient states he has had a headache for a week now. Patient reports the pain to be behind his eyes and in his frontal region. He denies any 10 out of 10, sudden, worsening onset of his headache. Patient rates his pain to be a 3 out of 10 at this time. Patient denies any dizziness or lightheadedness. Patient denies any nasal congestion or rhinorrhea. Patient denies any fevers, chills, nausea, vomiting, neck pain, neck stiffness, photophobia, phonophobia or loss consciousness. Patient reports taking Excedrin with relief of symptoms. Patient states he vomited 3 times yesterday. Patient denies any vomiting today. Patient is able to tolerate PO fluids. Patient denies any unilateral weakness, slurred speech, difficulty ambulating. Patient denies any falls or trauma. Denies any chest pain, shortness of breath, abdominal pain, diarrhea. ROS All systems reviewed and are negative except as per history of present illness. Medications Home Meds Active Scripts Acetamin/Butalbital/Caffeine* (Fioricet*) [id number] Tab, 1 TAB PO Q6H Y for PAIN, #7 TAB Prov:KYE LEA PA-C 02/23/17 Metronidazole* (Flagyl*) 500 Mg Tablet, 500 MG PO TID for 10 Days, TAB Prov:SAMM MEZA MD 02/11/15 Ciprofloxacin Hcl* (Ciprofloxacin Hcl*) 500 Mg Tablet, 500 MG PO BID for 10 Days , TAB Prov:SAMM MEZA MD 02/11/15 Reported Medications Elvitegr/Cobicist/Emtric/Tenof (STRIBILD TABLET) 1 Each Tablet, 1 EACH PO DAILY 02/11/15 Allergies Allergies: Coded Allergies: morphine (Verified Adverse Reaction, Severe, ANXIETY,SOB, 09/23/16) PMhx/Soc History of Surgery: No Anesthesia Reaction: Yes Hx Neurological Disorder: Yes (meningitis june) Hx Respiratory Disorders: Yes (bronchitis earlier this year) Hx Cardiac Disorders: No Hx Psychiatric Problems: Yes (anxiety, depression) Hx Miscellaneous Medical Probl: Yes (HIV) Hx Alcohol Use: No Hx Substance Use: Yes Hx Tobacco Use: Yes Smoking Status: Never smoker Physical Exam Vitals Vital Signs Date Time Temp Pulse Resp B/P Pulse Ox O2 Delivery O2 Flow Rate FiO2 02/23/17 09:33 97.6 113 20 122/79 97 Physical Exam GENERAL: Well-developed, well-nourished male. Appears in no acute distress. Speaking in full sentences. HEAD: Normocephalic, atraumatic. No deformities or ecchymosis. EYE: Pupils equal, round, and reactive to light. EOMs intact. No conjunctival erythema. No eye discharge. ENT: External ear without any masses or tenderness. Nasal mucosa pink with no discharge. Oropharynx is pink without any tonsillar erythema or exudates. No uvula deviation. No kissing tonsils. NECK: Supple. No meningismus. Normal ROM of the neck. No cervical midline tenderness. LUNG: Clear to auscultation bilaterally. No rhonchi, wheezing, rales or coarse breath sounds. HEART: Regular rate and rhythm. No murmurs, rubs or gallops. ABDOMEN: Soft, nontender, and nondistended. Positive bowel sounds in all four quadrants. No rebound tenderness, no guarding. (-) McBurney's point tenderness. No CVA tenderness. BACK: No midline tenderness. EXTREMITIES: Equal pulses bilaterally. No peripheral clubbing, cyanosis or edema. No unilateral leg swelling. NEUROLOGIC: Alert and oriented x3, cooperative. Mood and affect appropriate to situation. Cranial nerves II through XII are grossly intact. Normal speech. Motor exam: 5/5 strength in upper and lower extremities. Sensory exam: Sensation intact to light touch on all four extremities. Cerebellar function exam: No dysmetria on [id number] test. Steady gait. No pronator drift. SKIN: Normal color. Warm and dry. No rashes or lesions. Results 24 hrs Current Medications Medications (Trade) Dose Ordered Sig/Nicko Route PRN Reason Start Time Stop Time Status Last Admin Dose Admin Acetaminophen/ Butalbital/ Caffeine (Fioricet) 1 tab ONCE ONCE PO 02/23/17 10:30 02/23/17 10:31 DC 02/23/17 10:56 Procedures/MDM ED COURSE: The patient was stable throughout ED course. I kept the patient and/or family informed of laboratory and diagnostic imaging results throughout the ED course. EKG: Read by Dr. Coats, attending physician. EKG shows normal sinus tachycardia at rate of 119bpm No arrhythmias, acute ST elevations were noted. MEDICATIONS GIVEN: Fioricet Patient tolerated medication well with no adverse reactions. Patient reported improvement in pain. MEDICAL DECISION MAKING: This is a 36-year-old male who presents with a headache 1 week. Vital signs were reviewed. Patient was afebrile. Patient is not hypoxic. Patient reported taking Excedrin with relief of symptoms yesterday. Patient reported vomiting yesterday however he denies any vomiting today and was able to tolerate p.o. fluids. Patient denied any fevers, neck stiffness, jaw claudication, visual changes or LOC. Patient denies any sudden, 10 out of 10, worsening onset of his headache. Full neurological exam was normal. Nursing staff attempted to contact the patient numerous times. Patient was not found. Patient was noted to be in hospital cafeteria by staff and myself. Patient then returned to the ED an hour later. Patient was given Fioricet for his symptoms and reported improvement of pain. At this time, patient presentation is most consistent with tension headache. Low suspicion for intracranial hemorrhage, meningitis, encephalitis, CVA, mormonism arteritis, sinusitis, migraine headache, cluster headache. PRESCRIPTIONS: Fioricet DISCHARGE: At this time, patient is stable for discharge and outpatient management. I have encouraged the patient to hydrate well. I have instructed the patient to follow- up with his/her primary care physician in 1-2 days. If symptoms persist, patient may need to see a specialist for further examinations and testing. I have instructed the patient to promptly return to the ER at any time for any new or worsening symptoms including increased increased pain, fever, nausea, vomiting, numbness, neck stiffness, visual changes, weakness or LOC. The patient and/or family expressed understanding of and agreement with this plan. All questions were answered. Home care instructions were provided. Disclaimer: Inadvertent spelling and grammatical errors are likely due to EHR/ dictation software use and do not reflect on the overall quality of patient care. Also, please note that the electronic time recorded on this note does not necessarily reflect the actual time of the patient encounter. Departure Diagnosis: Primary Impression: Headache Headache type: unspecified Headache chronicity pattern: unspecified pattern Intractability: not intractable Qualified Code: R51 - Nonintractable headache, unspecified chronicity pattern, unspecified headache type Condition: Stable Patient Instructions: Self-Care for Headaches Referrals: [facility] YOU HAVE RECEIVED A MEDICAL SCREENING EXAM AND THE RESULTS INDICATE THAT YOU DO NOT HAVE A CONDITION THAT REQUIRES URGENT TREATMENT IN THE EMERGENCY DEPARTMENT. FURTHER EVALUATION AND TREATMENT OF YOUR CONDITION CAN WAIT UNTIL YOU ARE SEEN IN YOUR DOCTORS OFFICE WITHIN THE NEXT 1-2 DAYS. IT IS YOUR RESPONSIBILITY TO MAKE AN APPOINTMENT FOR FOLOW-UP CARE. IF YOU HAVE A PRIMARY DOCTOR --you should call your primary doctor and schedule an appointment IF YOU DO NOT HAVE A PRIMARY DOCTOR YOU CAN CALL OUR PHYSICIAN REFERRAL HOTLINE AT IF YOU CAN NOT AFFORD TO SEE A PHYSICIAN YOU CAN CHOSE FROM THE FOLLOWING [facility] [address] [facility]. [facility] [address] [facility]. [facility] [address] [facility] [address] [facility] [facility] [address] [facility]. [facility] [address] [facility]. [facility] YOU HAVE RECEIVED A MEDICAL SCREENING EXAM AND THE RESULTS INDICATE THAT YOU DO NOT HAVE A CONDITION THAT REQUIRES URGENT TREATMENT IN THE EMERGENCY DEPARTMENT. FURTHER EVALUATION AND TREATMENT OF YOUR CONDITION CAN WAIT UNTIL YOU ARE SEEN IN YOUR DOCTORS OFFICE WITHIN THE NEXT 1-2 DAYS. IT IS YOUR RESPONSIBILITY TO MAKE AN APPOINTMENT FOR FOLOW-UP CARE. IF YOU HAVE A PRIMARY DOCTOR --you should call your primary doctor and schedule and appointment IF YOU DO NOT HAVE A PRIMARY DOCTOR YOU CAN CALL OUR PHYSICIAN REFERRAL HOTLINE AT . IF YOU CAN NOT AFFORD TO SEE A PHYSICIAN YOU CAN CHOSE FROM THE FOLLOWING [facility] INSTITUTIONS: [facility] [address] [place] [address] [facility] [address] [place] [address] LOCATED WITHIN [facility] + [facility] [address] [place] [address] Additional Instructions: Call your primary care doctor TOMORROW for an appointment during the next 1-2 days.See the doctor sooner or return here if your condition worsens before your appointment time. KYE LEA PA-C Feb 23, 2017 11:15
[2017-02-23 11:46] VITALS: BP 128/77; PULSE 126; RESP 18; TEMP 97.9
== END 2017-02-23 11:59 | disposition home or self-care (01) ==
LOC: FTE 09:29
DX: R51 Headache (principal); R00.2 Palpitations
CPT/HCPCS: 93005; 99283; Z7610